=== PATIENT | male | born 1975 | race Caucasian/White ===

== ENCOUNTER → 2019-10-22 15:02 | Outpatient (CLI) | payer OTHER, SELFPAY ==
--- NOTE | 2019-10-22 16:00 | MRI_ITS ---
HISTORY: Left elbow pain in the left forearm. Biceps and wrist injury. Technique: Axial T1 and T2-weighted images, sagittal and coronal T1-weighted images, and coronal T2 fat sat images were obtained through the elbow. 153 images. Findings: There is been near complete avulsion of the biceps tendon from its insertion on the radius. There appear to be some fibers remaining. There is edema within the distal tendon. There is fluid around the tendon and the tendon sheath. Marrow signal is near normal. Is a tiny amount of edema at the tubercle at the insertion of the tendon. A small elbow effusion is present. Common flexor tendon demonstrates trace tendinosis. Common extensor tendon demonstrates trace tendinosis. Alignment at the elbow joint is normal. Other than the biceps tendon myofascial signal is normal. MRI/Upper Ext Joint Only(Routine) IMPRESSION: Near complete tear to the biceps tendon from its insertion on the radius. Severe tendinosis to the minimal remaining fibers that are intact. Fluid and edema surrounding the distal tendon at the elbow. at 0221 Reported and signed by: Philip Winn MD Electronically Signed: Philip Winn MD at 2:20 EDT Tel , Service support ,
--- NOTE | 2019-10-22 16:45 | MRI_ITS ---
HISTORY: Left elbow pain. Pain extends in the left forearm. Biceps and wrist injury. Earlier I read the MRI of the patient's elbow and there was a near complete biceps tendon rupture at its insertion on the radius. Technique: Axial T1, T2, and T2 fat sat, coronal T1 and T2 fat sat, sagittal T1 weighted images were obtained through the left forearm. Findings: The biceps tendon tear is again demonstrated. Tendinosis and fluid around the tendon is again demonstrated. There is a tiny amount of edema within the proximal radius at the insertion of the long biceps tendon. Bony alignment is normal. Marrow signal otherwise is normal. Myofascial signal within the forearm is normal. There is some susceptibility artifact at the wrist possibly related to jewelry. MRI/Upper Ext/No Jt/ wo IMPRESSION: Biceps tendon tear better seen on the MRI of the elbow. No acute disease within the forearm otherwise perceived at 0458 Reported and signed by: Philip Winn MD Electronically Signed: Philip Winn MD at 4:57 EDT Tel , Service support ,
== END ==
PROVIDERS: PCP Family Medicine; Referring Provider Family Medicine; Visit Provider Family Medicine
DX: S59.902A Unspecified injury of left elbow, initial encounter (principal); S49.82XA Other specified injuries of left shoulder and upper arm, initial encounter
CPT/HCPCS: 73218; 73221

== ENCOUNTER 2021-09-08 13:22 | Outpatient (CLI) | payer OTHER, SELFPAY ==
--- NOTE | 2021-09-08 13:25 | RAD_ITS ---
STUDY: X-RAY - ORBITS REASON FOR EXAM: Male, 46 years old. HX METAL TO EYE,, PRE MRI -- PT JUST ARRIVED TECHNIQUE: 2 view(s) of the orbits were obtained. COMPARISON: None. FINDINGS: Normal bilateral orbits without a metallic orbital foreign body. Normal visualized facial bones. Normal paranasal sinuses. The soft tissue structures are unremarkable. RAD/Orbits for Foreign Body IMPRESSION: No demonstrated metallic orbital foreign body. The patient is cleared for an MRI examination. Electronically Signed: Bulmaro Vidal MD at 13:51 EDT ,
--- NOTE | 2021-09-08 13:29 | MRI_ITS ---
STUDY: MAGNETIC RESONANCE IMAGING OF THE RIGHT HAND OF 1451 HOURS AND 09/08/2021 REASON FOR EXAM: 46-year-old with a clinical spraining of the right middle finger. Evaluate for other etiologies for pain. TECHNIQUE: Standardized fat and water weighted pulse sequences were obtained in all 3 orthogonal planes. COMPARISON: None. FINDINGS: FIRST DIGIT: Normal visualized first metacarpus. Normal metacarpophalangeal joint. Normal interphalangeal joint. Normal proximal, and distal phalanges. Normal flexor and extensor tendons. There is no soft tissue abnormality. SECOND DIGIT: Normal visualized second metacarpus. Normal metacarpophalangeal joint. Normal proximal and distal interphalangeal joints. Normal proximal, middle and distal phalanges. Normal flexor and extensor tendons. There is no soft tissue abnormality. THIRD DIGIT: There is ferromagnetic artifact on the anatomic lateral aspect (thumb side) of the left third finger in the region of the distal middle phalangeal segment. Does this patient have a third finger splint? There is evidence of mild soft tissue swelling adjacent to the middle phalangeal segment. There is no evidence of a fracture. There is evidence of inner phalangeal joint dislocations. Normal visualized third metacarpus. Normal metacarpophalangeal joint. Normal proximal and distal interphalangeal joints. Normal proximal, middle and distal phalanges. Normal flexor and extensor tendons. There is no soft tissue abnormality. FOURTH DIGIT: Normal visualized fourth metacarpus. Normal metacarpophalangeal joint. Normal proximal and distal interphalangeal joints. Normal proximal, middle and distal phalanges. Normal flexor and extensor tendons. There is no soft tissue abnormality. FIFTH DIGIT: Normal visualized fifth metacarpus. Normal metacarpophalangeal joint. Normal proximal and distal interphalangeal joints. Normal proximal, middle and distal phalanges. Normal flexor and extensor tendons. There is no soft tissue abnormality. Normal visualized thenar and hypothenar muscles. Normal lumbricalis and interosseous muscles. There are no solid, cystic or lipomatous masses. MRI/Upper Ext/No Jt/ wo IMPRESSION: 1. Ferromagnetic artifact adjacent to the middle phalangeal segment of the right third finger. This is patient have a metallic splint? 2. Mild soft tissue swelling at the mid right third finger. 3. No fractures. 4. Intact tendons. Electronically Signed: Lio Rockwell MD at 2:35 EDT ,
== END 2021-09-08 23:59 | disposition home or self-care (01) ==
LOC: MRI 13:23
PROVIDERS: PCP Family Medicine; Visit Provider Family Medicine
DX: S63.612A Unspecified sprain of right middle finger, initial encounter (principal)
CPT/HCPCS: 70030; 73218

== ENCOUNTER → 2024-10-28 | Outpatient (CLI) | payer OTHER, SELFPAY ==
--- NOTE | 2024-10-28 12:44 | RAD_ITS ---
PROCEDURE: FOREARM 2 VIEWS 10/28/2024 REASON FOR EXAM: INJURY Pain following injury. TECHNIQUE: 2 view(s) of the left forearm COMPARISON: None FINDINGS: Bones: Unremarkable Joints: Normal alignment at the wrist and elbow. Soft tissues: Punctate radiopacity in the soft tissue underlying the thenar region suggests possible foreign body. Other: RAD/Forearm 2 Views IMPRESSION: No fracture seen. Questionable tiny radiopacity in the thenar aspect of the soft tissues. Reading Location: [id number]
--- NOTE | 2024-10-28 12:44 | RAD_ITS ---
EXAM: Left wrist CLINICAL HISTORY: Pain following injury. COMPARISON: None TECHNIQUE: Three views of the left wrist were obtained. FINDINGS: No evidence of fracture or dislocation. There is a 1.9 mm radiopacity overlying the proximal aspect of the 1st metacarpal suggestive of possible radiopaque foreign body. RAD/Wrist min 3 Views IMPRESSION: No fracture seen. Questionable tiny radiopaque foreign body as described. Reading Location: [id number]
== END | disposition home or self-care (01) ==
LOC: MTRAD 12:44
PROVIDERS: PCP Family Medicine; Referring Provider Physician Assistant; Visit Provider Physician Assistant
DX: T14.90XA Injury, unspecified, initial encounter (principal)
CPT/HCPCS: 73090; 73110